=== PATIENT | female | born 1955 | race Caucasian/White ===

== ENCOUNTER → 2020-07-28 | Outpatient (CLI) | payer MEDICARE ==
--- NOTE | 2020-07-28 17:16 | Diagnostic Imaging Report ---
Indication: Routine screening. Comparison is made with prior mammograms of 12/04/2018 and 10/12/2017. 2-D and 3-D bilateral screening mammography was performed with CAD. Scattered fibroglandular densities are identified bilaterally. No mass or malignant appearing microcalcifications are seen. Axillae are unremarkable. IMPRESSION: BI-RADS Category 1 No mammographic features suspicious for malignancy are identified. Dictated by: Dictated on workstation # [id number]
--- NOTE | 2020-07-29 08:14 | Diagnostic Imaging Report ---
INDICATION: Postmenopausal female. COMPARISON: None FINDINGS: AP Spine L2-L4: [BMD (g/cm2): 0.959] [T-Score: -2.0] [Z-Score: -0.8] [BMD Previous: NA] [BMD % Change: NA] LT Hip Neck: [BMD (g/cm2): 0.946] [T-Score: -0.7] [Z-Score: 0.6] LT Hip Total: [BMD (g/cm2):0.896] [T-Score:-0.9] [Z-Score: -0.1] [BMD Previous: NA] [BMD % Change: NA] RT Hip Neck: [BMD (g/cm2):0.936] [T-Score:-0.7] [Z-Score:0.5] RT Hip Total: [BMD (g/cm2):0.887] [T-score:-1.0] [Z-Score:0.0] [BMD Previous:NA] [BMD % Change:NA] *Indicates significant change from prior examination based on 95% confidence level. World Health Organization criteria for BMD interpretation classify patients as Normal (T-score at or above -1.0), Osteopenic (T-score between -1.0 and -2.5) or Osteoporotic (T-score at or below -2.5). LIMITATIONS AND MODIFICATION: None. FRACTURE RISK (FRAX SCORE): The ten year probability of (%): Major Osteoporotic Fracture: [9.6] Hip Fracture: [0.6] IMPRESSION: 1. Osteopenia (Low bone mass). 2. Baseline examination. 3. See below National Osteoporosis Foundation guidelines on when to potentially initiate pharmacologic therapy. Based on the National Osteoporosis Foundation Guidelines, pharmacologic treatment should be initiated in any of the following, unless clinical conditions suggest otherwise: * Any patient with prior fragility fracture of the hip or vertebrae. A spine fracture indicates 5X risk for subsequent spine fracture and 2X risk for subsequent hip fracture. * Osteoporosis (T-score <-2.5). * Postmenopausal women and men age 50 and older with low bone mass/osteopenia (T-score between -1.0 and -2.5) by DXA and 10-year major osteoporotic fracture greater than 20% or a 10-year probability of hip fracture greater than 3%. These fracture risks are supplied above in the FRAX score, if applicable. * Clinician judgement and/or patient preferences may indicate treatment for people with 10-year fracture probabilities above or below these levels. Dictated by: Dictated on workstation # [id number]
== END ==
LOC: RAD 13:55
PROVIDERS: ATTEND Nurse Practitioner Family
DX: Z12.31 Encounter for screening mammogram for malignant neoplasm of breast (principal); M85.88 Other specified disorders of bone density and structure, other site; Z78.0 Asymptomatic menopausal state
CPT/HCPCS: 77063; 77067; 77080

== ENCOUNTER 2021-03-26 09:46 | Outpatient (RCR) | payer MEDICARE | END 2021-03-26 13:10 | disposition home or self-care (01) | PROVIDERS: ATTEND Nurse Practitioner Family | DX: M54.2 Cervicalgia (principal) ==

== ENCOUNTER → 2021-04-02 | Outpatient (CLI) | payer MEDICARE ==
--- NOTE | 2021-04-02 16:08 | Diagnostic Imaging Report ---
INDICATION: Ankle pain. History of rheumatoid arthritis. EXAMINATION: Left ankle 04/02/2021 FINDINGS: 3 views of the ankle. There is plantar calcaneal spurring. No fractures or dislocations. Ankle mortise and talar dome intact. IMPRESSION: 1. No acute process. Dictated by: Dictated on workstation # [id number]
== END ==
LOC: RAD 15:40
PROVIDERS: ATTEND Nurse Practitioner Family
DX: M25.572 Pain in left ankle and joints of left foot (principal); Z87.39 Personal history of other diseases of the musculoskeletal system and connective tissue
CPT/HCPCS: 73610

== ENCOUNTER 2021-05-17 09:20 | Outpatient (RCR) | payer MEDICARE | END 2021-05-17 12:13 | disposition home or self-care (01) | PROVIDERS: ATTEND Nurse Practitioner Family | DX: M77.11 Lateral epicondylitis, right elbow (principal); M79.642 Pain in left hand ==

== ENCOUNTER 2021-07-22 11:13 | Outpatient (RCR) | payer MEDICARE | END 2021-07-22 15:50 | disposition home or self-care (01) | PROVIDERS: ATTEND Nurse Practitioner Family | DX: M77.01 Medial epicondylitis, right elbow (principal) ==

== ENCOUNTER 2021-08-03 09:55 | Outpatient (RCR) | payer MEDICARE | END 2021-08-23 | disposition home or self-care (01) | PROVIDERS: ATTEND Nurse Practitioner Family | DX: M77.01 Medial epicondylitis, right elbow (principal); E03.9 Hypothyroidism, unspecified ==

== ENCOUNTER 2021-09-28 13:12 | Outpatient (RCR) | payer MEDICARE | END 2021-10-21 16:02 | disposition home or self-care (01) | PROVIDERS: ATTEND Family Medicine Sports Medicine | DX: M23.262 Derangement of other lateral meniscus due to old tear or injury, left knee (principal) ==

== ENCOUNTER 2022-02-01 09:30 | Outpatient (RCR) | payer MEDICARE | END 2022-02-07 15:38 | disposition home or self-care (01) | PROVIDERS: ATTEND Nurse Practitioner Family | DX: M25.812 Other specified joint disorders, left shoulder (principal) ==

== ENCOUNTER 2022-08-08 13:38 | Outpatient (RCR) | payer MEDICARE | END 2022-08-08 15:59 | disposition home or self-care (01) | PROVIDERS: ATTEND Nurse Practitioner Family | DX: R53.1 Weakness (principal) ==

== ENCOUNTER 2023-05-05 10:29 | Outpatient (RCR) | payer MEDICARE | END 2023-05-23 | disposition home or self-care (01) | PROVIDERS: ATTEND Family Medicine Sports Medicine | DX: M17.12 Unilateral primary osteoarthritis, left knee (principal); M25.561 Pain in right knee ==